=== PATIENT | female | born 1970 | race Caucasian/White ===

== ENCOUNTER 2020-08-28 07:01 | Day surgery (SDC) | payer BC ==
[~2020-08-28] VITALS: Ht 162.6 cm; Wt 78.5 kg
[~2020-08-28 07:01] MED LIST: ADIPEX-P37.5 MG PO; AMBIEN10 MG PO; CELEXA10 MG PO; ESTRACE1 MG PO; PROTONIX40 MG PO; ZOFRAN ODT4 MG/UDTAB PO
[2020-08-28 07:56] LABS: ANION GAP 6.5 mmol/L (8-16); CALCIUM 9.1 mg/dL (8.5-10.1); CARBON DIOXIDE 31.5 mmol/L (21.0-32.0); CREATININE - SERUM 0.9 mg/dL (0.6-1.3)
[2020-08-28 08:12] LABS: BASOPHILS 0.8 % (0-2); EOSINOPHILS 2.1 % (0-7); HEMATOCRIT 43.4 % (36.0-48.0); HEMOGLOBIN 14.2 g/dL (12-16); LYMPHOCYTE ABS# 1.52 10x3/uL (1.18-3.74); LYMPHOCYTES 31.8 % (15-50); MCH 31.6 pg (26.0-34.0); MCHC 32.7 g/dL (31.0-37.0); MCV 96.7 fL (80.0-100.0); MEAN PLATELET VOLUME 12.4 fL (7.4-10.4); MONOCYTES 10.3 % (2-11); NEUTROPHIL ABS# 2.63 10x3/uL (1.56-6.13); PLATELET COUNT 189 10x3/uL (130-400); RBC 4.49 10x6/uL (4.00-5.40); RDW 12.4 % (11.5-14.5); WBC 4.8 10x3/uL (4.8-10.8)
[2020-08-28 08:47] VITALS: BP 103/56; Ht 162.6 cm; Wt 78.5 kg
[2020-08-28] MEDS ORDERED: HYDROCODON-ACE1 EA10 PO (10:06)
--- NOTE | 2020-08-28 13:29 | NUR ---
1156 IV REMOVED AND PRESSURE HELD. INSTRUCTIONS GIVEN. PT VOIDED AND NOT IN ANY PAIN.
--- NOTE | 2020-09-01 08:11 | OP ---
PATIENT NAME: HARPAL EUCEDA MEDICAL RECORD: [id number] :70 LOCATION:D.OPS ADMISSION DATE: SURGEON: ELIE LEUNG MD DATE OF OPERATION: 08/28/2020 PREOPERATIVE DIAGNOSES: 1. Gallstones. 2. Hypercholesterolemia. 3. Gastroesophageal reflux disease. 4. Tobacco dependence syndrome. 5. Nonalcoholic fatty liver disease. POSTOPERATIVE DIAGNOSES: 1. Gallstones. 2. Hypercholesterolemia. 3. Gastroesophageal reflux disease. 4. Tobacco dependence syndrome. 5. Nonalcoholic fatty liver disease. PROCEDURE: Laparoscopic cholecystectomy. SURGEON: Elie Leung MD DESCRIPTION OF PROCEDURE: The patient's abdomen was prepped and draped in sterile fashion. A cutdown was made on the superior aspect of the umbilicus, 0 Vicryls were placed in the fascia bilaterally and the fascia was incised with a 15-blade. I then bluntly entered the peritoneal cavity and placed a 12-mm Cindi port. Under direct visualization, a 5-mm trocar was placed in the epigastrium and two more 5-mm trocars were placed in the right subcostal region. The gallbladder was grasped and elevated. The liver was noted to be swollen, but no signs of cirrhotic changes. The gallbladder itself had no signs of any chronic inflammatory adhesions. The cystic artery and cystic duct were dissected free and these were clipped proximally and distally and ligated in standard fashion. The gallbladder was taken off the liver bed using electrocautery and placed into the right upper quadrant. Any bleeding from the liver bed was then treated with electrocautery. The ports and insufflation were then removed and the gallbladder was taken out through the umbilicus. The umbilical fascia was closed with interrupted 0 Vicryls times 3. The wounds were irrigated out with normal saline and infused with 10 mL of 0.25% Marcaine with epinephrine. The skin incisions were closed with subcutaneous 5-0 Monocryl and dressed appropriately. COMPLICATIONS: None. CONDITION: Stable. ANESTHESIA: General endotracheal and local. BLOOD LOSS: Minimal. TRANSINT:[id number] Voice Confirmation ID: [id number] DOCUMENT ID: [id number] OPERATIVE REPORT [id number] HARPAL EUCEDA ELIE LEUNG MD at 0811 CC: ALEM FERGUSON MD and GERONIMO JUAREZ DO [id number] DICTATION DATE: 08/28/20 1009 [facility] TECHNICIAN: 08/28/20 1418 [facility] [place] 08/28/20 [facility] [address] [place] [address]
== END 2020-08-28 12:10 | disposition home or self-care (01) ==
LOC: D.OPS 07:01
PROVIDERS: ATTEND Surgery
DX: K80.20 Calculus of gallbladder without cholecystitis without obstruction (principal); E78.00 Pure hypercholesterolemia, unspecified; K21.9 Gastro-esophageal reflux disease without esophagitis; K76.0 Fatty (change of) liver, not elsewhere classified; F17.200 Nicotine dependence, unspecified, uncomplicated